=== PATIENT | female | born 1985 | race Caucasian/White ===

== ENCOUNTER → 2023-10-30 16:44 | Outpatient (REF) | payer OTHER, SELFPAY | LOC: MRI 3T 16:44 | PROVIDERS: ATTENDING PHYSICIAN Nurse Practitioner Adult Health; FAMILY PHYSICIAN Family Medicine | DX: Z15.01 Genetic susceptibility to malignant neoplasm of breast (principal); Z15.09 Genetic susceptibility to other malignant neoplasm | CPT/HCPCS: 77049; A9585 ==

== ENCOUNTER → 2023-11-05 14:04 | Outpatient (REF) | payer OTHER, SELFPAY | LOC: RAD 14:04 | PROVIDERS: ATTENDING PHYSICIAN Obstetrics & Gynecology; FAMILY PHYSICIAN Family Medicine | DX: Z15.01 Genetic susceptibility to malignant neoplasm of breast (principal); Z15.09 Genetic susceptibility to other malignant neoplasm | CPT/HCPCS: 76830; 76856 ==

== ENCOUNTER 2024-05-22 07:20 | Outpatient (RCR) | payer OTHER, SELFPAY | END 2024-05-22 23:59 | disposition home or self-care (01) | LOC: RPT 07:20 | PROVIDERS: ATTENDING PHYSICIAN Family Medicine | DX: I97.2 Postmastectomy lymphedema syndrome (principal); Z90.12 Acquired absence of left breast and nipple | CPT/HCPCS: 97112; 97140; 97162; 97535 ==

== ENCOUNTER 2024-06-22 15:16 | Outpatient (RCR) | payer OTHER, SELFPAY | END 2024-06-22 23:59 | disposition home or self-care (01) | LOC: RPT 15:16 | PROVIDERS: ATTENDING PHYSICIAN Family Medicine | DX: Z42.1 Encounter for breast reconstruction following mastectomy (principal); Z73.6 Limitation of activities due to disability | CPT/HCPCS: 97110; 97112; 97140; 97535 ==

== ENCOUNTER 2024-07-06 14:51 | Outpatient (RCR) | payer OTHER, SELFPAY | END 2024-07-06 23:59 | disposition home or self-care (01) | LOC: RPT 14:51 | PROVIDERS: ATTENDING PHYSICIAN Family Medicine | DX: Z42.1 Encounter for breast reconstruction following mastectomy (principal); Z73.6 Limitation of activities due to disability | CPT/HCPCS: 97110; 97112; 97140; 97530 ==

== ENCOUNTER 2024-08-06 13:59 | Outpatient (RCR) | payer OTHER, SELFPAY | END 2024-08-06 23:59 | disposition home or self-care (01) | LOC: RPT 13:59 | PROVIDERS: ATTENDING PHYSICIAN Family Medicine | DX: Z42.1 Encounter for breast reconstruction following mastectomy (principal); Z73.6 Limitation of activities due to disability | CPT/HCPCS: 97140; 97530 ==

== ENCOUNTER 2024-09-29 14:53 | Outpatient (RCR) | payer OTHER, SELFPAY | END 2024-09-29 23:59 | disposition home or self-care (01) | LOC: RPT 14:53 | PROVIDERS: ATTENDING PHYSICIAN Family Medicine | DX: Z42.1 Encounter for breast reconstruction following mastectomy (principal); Z73.6 Limitation of activities due to disability | CPT/HCPCS: 97014; 97110; 97112; 97140; 97530 ==

== ENCOUNTER 2024-10-29 15:57 | Outpatient (RCR) | payer OTHER, SELFPAY | END 2024-10-29 23:59 | disposition home or self-care (01) | LOC: RPT 15:57 | PROVIDERS: ATTENDING PHYSICIAN Family Medicine | DX: Z42.1 Encounter for breast reconstruction following mastectomy (principal); Z73.6 Limitation of activities due to disability | CPT/HCPCS: 97014; 97110; 97112; 97140; 97530 ==

== ENCOUNTER → 2024-11-02 14:21 | Outpatient (REF) | payer OTHER, SELFPAY | LOC: RAD 14:21 | PROVIDERS: ATTENDING PHYSICIAN Obstetrics & Gynecology; FAMILY PHYSICIAN Family Medicine | DX: Z15.01 Genetic susceptibility to malignant neoplasm of breast (principal); Z15.09 Genetic susceptibility to other malignant neoplasm | CPT/HCPCS: 76830; 76856 ==

== ENCOUNTER 2024-11-26 15:51 | Outpatient (RCR) | payer OTHER, SELFPAY | END 2024-11-26 23:59 | disposition home or self-care (01) | LOC: RPT 15:51 | PROVIDERS: ATTENDING PHYSICIAN Family Medicine | DX: Z42.1 Encounter for breast reconstruction following mastectomy (principal); N39.3 Stress incontinence (female) (male); Z73.6 Limitation of activities due to disability | CPT/HCPCS: 97014; 97110; 97112; 97140; 97530 ==

== ENCOUNTER 2024-12-24 18:03 | Outpatient (RCR) | payer OTHER, SELFPAY | END 2024-12-24 23:59 | disposition home or self-care (01) | LOC: RPT 18:03 | PROVIDERS: ATTENDING PHYSICIAN Family Medicine | DX: Z42.1 Encounter for breast reconstruction following mastectomy (principal); N39.3 Stress incontinence (female) (male) (principal); Z73.6 Limitation of activities due to disability; M62.81 Muscle weakness (generalized); Z90.13 Acquired absence of bilateral breasts and nipples | CPT/HCPCS: 97110; 97140; 97530 ==

== ENCOUNTER 2025-01-21 16:17 | Outpatient (RCR) | payer OTHER, SELFPAY | END 2025-01-22 07:27 | disposition home or self-care (01) | LOC: RPT 16:17 | PROVIDERS: ATTENDING PHYSICIAN Family Medicine | DX: N39.3 Stress incontinence (female) (male) (principal); Z73.6 Limitation of activities due to disability; M62.81 Muscle weakness (generalized); Z90.13 Acquired absence of bilateral breasts and nipples; Z42.1 Encounter for breast reconstruction following mastectomy | CPT/HCPCS: 97140; 97530 ==